=== PATIENT | female | born 1945 | race Caucasian/White ===

== ENCOUNTER → 2021-11-10 | Day surgery (SDC) | payer MEDICARE, OTHER ==
[~2021-11-10] VITALS: Ht 170.2 cm; Wt 116.6 kg
[~2021-11-10] MED LIST: LIALDA1.2 GM PO; TYLENOL ARTHRI650 MG PO
== END | disposition home or self-care (01) ==
LOC: FAS 11:13
DX: Z12.11 Encounter for screening for malignant neoplasm of colon (principal); K51.90 Ulcerative colitis, unspecified, without complications; K64.4 Residual hemorrhoidal skin tags; M81.0 Age-related osteoporosis without current pathological fracture; Z80.0 Family history of malignant neoplasm of digestive organs; Z86.010 Personal history of colon polyps; Z88.0 Allergy status to penicillin; Z88.2 Allergy status to sulfonamides
CPT/HCPCS: J2704; J7120